=== PATIENT | male | born 1990 | race Two or more races ===

== ENCOUNTER 2025-01-05 13:27 | Emergency (ER) | payer OTHER ==
[~2025-01-05] VITALS: Ht 165.1 cm; Wt 70.8 kg
[2025-01-05] MEDS ORDERED: KETOROLAC TROMETHAMINE 30 MG VIAL IM STA (14:25)
[2025-01-05] MEDS ORDERED: KETOROLAC TROMETHAMINE 30 MG VIAL ONE (15:04)
[2025-01-05 16:14] LABS: HEMATOCRIT 49.6 % (39.0-48.0); HEMOGLOBIN 16.6 g/dL (13-16.00); MEAN CELL VOLUME 89.9 fL (80.0-100.00); MEAN CORPUSCULAR HEMOGLOBIN 30.1 pg (27.00-32.0); MEAN CORPUSCULAR HGB CONC 33.5 g/dl (32.0-36.0); PLATELET COUNT 245 K/uL (150-450); RED BLOOD COUNT 5.52 M/uL (4.00-6.00)
[2025-01-05] MEDS ORDERED: OSEL75CA PO ×2 (16:48→16:56)
[2025-01-05] MEDS ORDERED: PEPCID AC20 MG (16:49)
[2025-01-05] MEDS ORDERED: NASAL MIST126 ML (16:53)
[2025-01-05] MEDS ORDERED: PEPCID AC20 MG PO (16:56)
== END 2025-01-05 17:33 | disposition home or self-care (01) ==
LOC: ER 13:28
DX: J10.1 Influenza due to other identified influenza virus with other respiratory manifestations (principal); Z20.822 Contact with and (suspected) exposure to COVID-19